=== PATIENT | female | born 1975 ===

== ENCOUNTER 2017-03-05 10:26 | Emergency (ER) | payer SELFPAY ==
[2017-03-05 10:37] VITALS: BP 101/64
[2017-03-05] MEDS ORDERED: Naproxen TAB* 250 MG PO ONE (11:42)
--- NOTE | 2017-03-17 11:37 | UC ---
I, Dwight,Doris, scribed for Lakesha Casey MD on 03/05/17 at 1131 . Lower Extremity/Ankle HPI - HPI Summary HPI Summary: This 41 y/o female presents to [facility] for acute onset of LLE heel pain since 2 days ago. Pt was playing squash at time of onset. "I was going for the shot and next moment I was on the floor". Pt is unsure of RENA. Advil alleviates the pain. Pt is able to bear weight on LLE, but flexion of the ankle makes the pain worse. Pt decided to visit Urgent Care when pt did not alleviate. PMHx includes Walter. Vital signs are reviewed and noted with normotensive blood pressure. Plan of care involving outpatient f/u and MRI is discussed with pt, and she is agreeable. - History of Current Complaint Chief Complaint: UCLowerExtremity Stated Complaint: HEEL PAIN Time Seen by Provider: 03/05/17 11:24 Hx Obtained From: Patient, Medical Records Hx Last Menstrual Period: 02/22/17 ?: No Onset/Duration: Sudden Onset, Still Present Pain Intensity: 4 Pain Scale Used: 0-10 Numeric Aggravating Factor(s): Other - flexion of LLE ankle Alleviating Factor(s): Rest, OTC Meds - Advil Able to Bear Weight: Yes - Allergies/Home Medications Allergies/Adverse Reactions: Allergies Allergy/AdvReac Type Severity Reaction Status Date / Time No Known Allergies Allergy Verified 04/25/13 17:54 PMH/Surg Hx/FS Hx/Imm Hx Endocrine History: Thyroid Disease - Walter Psychological History: Depression Other History Of: Negative For: HIV - Surgical History Surgical History: None - Family History Known Family History: Positive: Hypertension - Positive to mother - Social History Occupation: Employed Full-time Lives: With Family Alcohol Use: Weekly Substance Use Type: None Smoking Status (MU): Light Every Day Tobacco Smoker Review of Systems Constitutional: Negative Skin: Negative Eyes: Negative ENT: Negative Respiratory: Negative Cardiovascular: Negative Gastrointestinal: Negative Genitourinary: Negative Motor: Negative Neurovascular: Negative Musculoskeletal: Other: - LLE ankle pain Neurological: Negative Psychological: Depressed - history of depression, mood presently well controlled. All Other Systems Reviewed And Are Negative: Yes Physical Exam Triage Information Reviewed: Yes Appearance: Well-Appearing, Pain Distress - mild to moderate. Vital Signs: Initial Vital Signs Temp 98 F 07/09/17 10:30 Pulse 89 03/05/17 10:30 Resp 16 03/05/17 10:30 BP 101/64 03/05/17 10:30 Pulse Ox 99 03/05/17 10:30 Vital Signs Reviewed: Yes Eye Exam: Normal Neck exam: Normal Respiratory: Positive: Lungs clear, Normal breath sounds Cardiovascular: Positive: RRR, No Murmur Musculoskeletal Exam: Other - visible defect in Achilles tendon, with mild bruising over medial malleolus and mild swelling. Musculoskeletal: Positive: ROM Limited @ - left heel, Other: - Smith test on left shows no ankle plantar flexion Skin Exam: Normal Procedures - Splinting Location: LLE ankle Hand-Made Type: orthoglass Splint: posterior walking Pre-Proc Neuro Vasc Exam: normal Post-Proc Neuro Vasc Exam: normal Lower Extremity Course/Dx - Course Course Of Treatment: Dr. Amaya, Orthopaedist weatherization and housing inspector, was paged at 1200 PM, but consult was not returned. - Differential Dx/Diagnosis Provider Diagnoses: torn left Achilles tendon Discharge - Discharge Plan Condition: Stable Disposition: HOME Patient Education Materials: Crutch Instructions (ED), Achilles Tendon Rupture (ED) Referrals: Bladimir Polo MD [Medical Doctor] - Lakesha Casey MD [Primary Care Provider] - Additional Instructions: Please use naproxen (aleve) 2 x 220mg tablets twice daily as anti-inflammatory. You should be non-weight bearing. Please call Dr Amaya's office tomorrow. If you are having any difficulty arranging an appointment, please call my office for assistance. The documentation as recorded by the Dwight cullen Soohyun accurately reflects the service I personally performed and the decisions made by me, Lakesha Casey MD.
== END 2017-03-05 13:00 | disposition home or self-care (01) ==
LOC: UCEAST 10:26
DX: S86.012A Strain of left Achilles tendon, initial encounter (principal); X58.XXXA Exposure to other specified factors, initial encounter; Y93.73 Activity, racquet and hand sports; Y92.311 Squash court as the place of occurrence of the external cause; E06.3 Autoimmune thyroiditis; F32.9 Major depressive disorder, single episode, unspecified; F17.210 Nicotine dependence, cigarettes, uncomplicated
CPT/HCPCS: 99212; A9270-GY; G0463